=== PATIENT | female | born 1965 | race Caucasian/White ===

== ENCOUNTER 2024-09-20 11:46 | Emergency (ER) | payer BC ==
[~2024-09-20] VITALS: Ht 172.7 cm; Wt 65.3 kg
[~2024-09-20 11:46] MED LIST: B-12500 MC1 SL; CELE200 PO; CYCL10 PO; Complete Multi1 EAC1 PO; DIPH50 PO; FAMO20 PO; FISH1000 PO; Glucosamine-Ch1 EA23 PO; METPRE4DP PO; VITAMIN D32000 UNIT PO
[2024-09-20 12:15] VITALS: BP 112/83
[2024-09-20] MEDS ORDERED: TiZANidine HCl 4 MG Tab PO ONE (12:20)
[2024-09-20] MEDS ORDERED: Ketorolac Tromethamine 15mg Vial IM ONE (12:20)
[2024-09-20] MEDS ORDERED: Lidocaine 4% 1 Patch TOP ONE (12:20)
[2024-09-20] MEDS ORDERED: TIZA4 PO (14:38)
[2024-09-20] MEDS ORDERED: LIDO700A20 TOP (14:39)
== END 2024-09-20 15:01 | disposition home or self-care (01) ==
LOC: ER 11:46
DX: M25.512 Pain in left shoulder (principal); H92.02 Otalgia, left ear; M54.2 Cervicalgia; Z79.1 Long term (current) use of non-steroidal anti-inflammatories (NSAID); Z79.899 Other long term (current) drug therapy; Z59.89 Other problems related to housing and economic circumstances
CPT/HCPCS: 73030; 96372; 99283-25; A9270; J1885

== ENCOUNTER → 2025-02-27 | Outpatient (CLI) | payer BC ==
[~2025-02-27] MED LIST changes: +LIDO700A20 TOP; +TIZA4 PO
[2025-03-01 20:56] LABS: HSV 1 GLYCOPROTEIN G AB, IGG 0.08 IV (<=0.89); HSV 2 GLYCOPROTEIN G AB, IGG 0.03 IV (<=0.89)
== END ==
LOC: LAB 11:09 → LAB SHORT 11:09
PROVIDERS: Physician Assistant
DX: B02.9 Zoster without complications (principal)
CPT/HCPCS: 86695; 86696